=== PATIENT | female | born 1980 | race Caucasian/White ===

== ENCOUNTER 2017-11-11 07:36 | Observation (INO) | payer OTHER ==
[~2017-11-11 07:36] MED LIST: BUPIVACAINE-EPI 0.25%-1:200000 50 ML VIAL.; ESTROGENS, CONJ VAGINAL CREAM 30GM TUBE.; SURGICEL HEMOSTAT 4X8 EACH.
[2017-11-11] MEDS ORDERED: LIDOCAINE 1% PF 2 ML VIAL. ID ×2 (08:00→11:00)
[2017-11-11] MEDS ORDERED: MIDAZOLAM HCL/PF 2 MG/2 ML VIAL. IV (08:00)
[2017-11-11] MEDS ORDERED: fentaNYL PF VIAL 100 MCG/2 ML VIAL IV ×3 (08:00→11:00)
[2017-11-11] MEDS: IV RINGERS,LACTATED 1000ML 1,000 ML IV ×2 (08:10→16:17)
[2017-11-11 08:15] LABS: NEG OBC UR NEG; POS OBC UR POS; U PREG PATIENT NEGATIVE (NEG)
[2017-11-11 08:16] LABS: ADD MAN DIFF? NO
[2017-11-11] MEDS: SCOPOLAMINE 1.5MG PATCH. TD (08:19)
[2017-11-11 08:27] LABS: BASO # 0.1 x10^3/uL (0.0-0.2); BASO % 1 % (0-3); EOS # 0.2 x10^3/uL (0.0-0.7); EOS % 2 % (0-3); HEMATOCRIT 38.1 % (36.0-47.0); LYMPH # 3.6 x10^3/uL (1.0-4.8); LYMPH % 43 % (24-48); MEAN CORPUSCULAR HEMOGLOBIN 30 pg (25-35); MEAN CORPUSCULAR HGB CONC 34 g/dL (31-37); MEAN CORPUSCULAR VOLUME 88 fL (79-100); MONO # 0.7 x10^3/uL (0.0-1.1); MONO % 8 % (0-9); NEUT # 3.8 x10^3uL (1.8-7.7); NEUT % 46 % (31-73); PLATELET COUNT 214 x10^3/uL (140-400); RED BLOOD COUNT 4.34 x10^6/uL (3.50-5.40); RED CELL DISTRIBUTION WIDTH 12.9 % (11.5-14.5); WHITE BLOOD COUNT 8.4 x10^3/uL (4.0-11.0)
[2017-11-11] MEDS ORDERED: fentaNYL PF VIAL 100 MCG/2 ML VIAL ×2 (08:33→09:17)
[2017-11-11] MEDS ORDERED: SUCCINYLCHOLINE 200 MG/10 ML VIAL. (08:33)
[2017-11-11] MEDS ORDERED: ROCURONIUM 50 MG/5 ML VIAL. (08:33)
[2017-11-11] MEDS ORDERED: MIDAZOLAM HCL/PF 2 MG/2 ML VIAL. (08:33)
[2017-11-11] MEDS: ceFAZolin SODIUM 3 GM in IV DEXTROSE 5% 100ML 100 ML IV (09:15)
[2017-11-11] MEDS: BUPIVACAINE-EPI 0.25%-1:200000 50 ML VIAL. INJ (09:27)
[2017-11-11] MEDS: LIDOCAINE 1%/EPI 1:100,000 20 ML VIAL. INJ (09:27)
[2017-11-11] MEDS ORDERED: PROPOFOL 40 ML IV (09:38)
[2017-11-11] MEDS ORDERED: ONDANSETRON PF 4 MG/2 ML VIAL. (09:43)
[2017-11-11] MEDS ORDERED: DEXAMETHASONE SOD PHOS 20 MG/5 ML VIAL. (09:43)
[2017-11-11] MEDS ORDERED: NEOSTIGMINE METHYLSULFATE 5 MG/5 ML SYRINGE. (09:44)
[2017-11-11] MEDS ORDERED: GLYCOPYRROLATE 1 MG/5 ML VIAL. (09:44)
[2017-11-11] MEDS ORDERED: FAMOTIDINE 20 MG/2 ML VIAL (09:59)
[2017-11-11] MEDS ORDERED: SEVOFLURANE 61 TO 120 MINUTES. IH (10:35)
[2017-11-11] MEDS ORDERED: IV RINGERS,LACTATED 1000ML 1,000 ML IV ×2 (10:57→12:50)
[2017-11-11] MEDS ORDERED: ONDANSETRON PF 4 MG/2 ML VIAL. IV ×2 (11:00→13:00)
[2017-11-11] MEDS: fentaNYL PF VIAL 100 MCG/2 ML VIAL IV ×4 (11:10→11:57)
[2017-11-11] MEDS: PROCHLORPERAZINE 10 MG/2 ML VIAL. IV (11:15)
[2017-11-11] MEDS ORDERED: MAG HYDROX/ALUMINUM HYD/SIMETH 30 ML ORAL.SUSP PO (13:00)
[2017-11-11] MEDS ORDERED: oxyCODONE/APAP 5/325 1 TAB TABLET PO (13:00)
[2017-11-11] MEDS ORDERED: BISACODYL 10 MG SUPP.RECT. PR (13:00)
[2017-11-11] MEDS ORDERED: NALOXONE 0.4 MG/ML VIAL. IV (13:00)
[2017-11-11] MEDS ORDERED: SIMETHICONE 80 MG TAB.CHEW PO (13:00)
[2017-11-11] MEDS ORDERED: CALCIUM CARBONATE 500 MG TAB.CHEW PO (13:00)
[2017-11-11] MEDS ORDERED: METOCLOPRAMIDE HCL 10 MG/2 ML VIAL. IV (13:00)
[2017-11-11] MEDS ORDERED: ZOLPIDEM 5 MG TABLET. PO (13:00)
[2017-11-11] MEDS ORDERED: DEXTROSE 50% 25 GM / 50ML DISP.SYRIN. IV (13:00)
[2017-11-11] MEDS ORDERED: PROCHLORPERAZINE 10 MG/2 ML VIAL. IV (13:00)
[2017-11-11] MEDS ORDERED: HYDROcodone/APAP 5/325MG 1 TAB TABLET PO ×2 (13:00)
[2017-11-11] MEDS ORDERED: MAGNESIUM HYDROXIDE 2,400 MG/30 ML ORAL.SUSP. PO (13:00)
[2017-11-11] MEDS ORDERED: 0.9 % SODIUM CHLORIDE 10 ML DISP.SYRIN. IV (13:00)
[2017-11-11] MEDS: GABAPENTIN 300 MG CAPSULE. PO ×2 (14:00→21:09)
[2017-11-11] MEDS: KETOROLAC 30 MG/ML INJ. IV (16:15)
[2017-11-11] MEDS: SENNOSIDES/DOCUSATE 8.6/50MG TABLET. PO (21:09)
[2017-11-11] MEDS: oxyCODONE/APAP 5/325 1 TAB TABLET PO (21:09)
[2017-11-11] MEDS: DOCUSATE SODIUM 100 MG CAPSULE. PO (21:09)
[2017-11-12 03:58] LABS: ANION GAP 7 (6-14); BLOOD UREA NITROGEN 7 mg/dL (7-20); CALCIUM 8.3 mg/dL (8.5-10.1); CARBON DIOXIDE 24 mmol/L (21-32); CHLORIDE 104 mmol/L (98-107); CREATININE 0.7 mg/dL (0.6-1.0); GFR 95.2; GLUCOSE 138 mg/dL (70-99); POTASSIUM 4.3 mmol/L (3.5-5.1); SODIUM 135 mmol/L (136-145)
[2017-11-12] MEDS: GABAPENTIN 300 MG CAPSULE. PO (06:31)
[2017-11-12] MEDS: oxyCODONE/APAP 5/325 1 TAB TABLET PO ×2 (06:32→13:34)
[2017-11-12 09:26] LABS: HEMATOCRIT 35.6 % (36.0-47.0)
[2017-11-12] MEDS: IBUPROFEN 600 MG TABLET. PO (10:09)
[2017-11-12] MEDS: DOCUSATE SODIUM 100 MG CAPSULE. PO (10:09)
== END 2017-11-12 16:47 | disposition home or self-care (01) ==
LOC: SURG 07:36 → 3 NORTH 11:35
DX: N83.201 Unspecified ovarian cyst, right side (principal); N83.202 Unspecified ovarian cyst, left side; N73.6 Female pelvic peritoneal adhesions (postinfective); N83.8 Other noninflammatory disorders of ovary, fallopian tube and broad ligament; N85.2 Hypertrophy of uterus; N92.0 Excessive and frequent menstruation with regular cycle
CPT/HCPCS: 36415; 80048; 81025; 85014; 85025; 86850; 86900; 86901; 88307; 96374; A7015; G0378; G0379; J0330; J0780; J1100; J1885; J2250; J2405; J2704; J2710; J3010; J3490; J7030; J7120; S0028